=== PATIENT | male | born 1975 | race Caucasian/White ===

== ENCOUNTER 2022-12-10 08:08 | Inpatient (IN) ==
[2022-12-10 09:10] LABS: INR 1.2; PT Patient Result 13.5 SECS (10.1-12.1); Partial Thromboplastin Time 27.1 SECS (23.7-32.9)
[2022-12-10 09:18] LABS: Albumin 2.5 G/DL (3.4-5.0); Bilirubin,Total 2.8 MG/DL (0.20-1.00); Calcium 8.5 MG/DL (8.5-10.1); Osmolality,Calculated 287.7 MOS/KG (273-304); Potassium 3.8 MMOL/L (3.5-5.1); Total Protein 6.9 G/DL (6.4-8.2)
[2022-12-10 10:31] LABS: Basophils % 0.3 % (0.0-0.8); Eosinophils % 0.2 % (0.00-10.9); Hematocrit 36.7 VOL% (42.0-52.0); Hemoglobin 12.8 GM/DL (14.0-18.0); Immature Granulocytes % 0.7 %; Immature Granulocytes Absolute 0.08 #; Lymphocytes # 0.6 10*3/uL (1.4-4.0); Mean Corpuscular HGB Conc 34.9 GM/DL (32-36); Mean Corpuscular Volume 110.2 FL (87-102); Mean Platelet Volume 9.6 FL (9.6-12.0); Monocytes # 0.9 10*3/uL (0.11-0.8); Monocytes % 7.4 % (1.7-12.7); Neutrophils % 86.4 % (38.7-73.9); Platelet Count 106 T/CUMM (130-400); Red Blood Count 3.33 MC/CUMM (3.8-5.5); Red Cell Distribution Width 15.1 % (9.3-17.3); White Blood Count 11.6 T/CUMM (4-12)
[2022-12-10 10:42] LABS: Bacteria,Urine Occasional /HPF (Few); Mucus,Urine Occasional /LPF (Occasional); Squamous Epithelial Cell,Urine Occasional /HPF (0-10)
[2022-12-10 10:43] LABS: Urine Color Yellow (Yellow)
[2022-12-10 10:44] LABS: Bilirubin,Urine Negative (Negative); Blood, Urine Negative (Negative); Glucose,Urine (UA) Negative (Negative); Ketones,Urine Negative (Negative); Nitrite,Urine Negative (Negative); Protein,Urine 30 mg/dL (Negative); Urine Appearance Slightly Cloudy (Clear); Urine Specific Gravity 1.015 (1.001-1.035); Urine pH 5.5 (4.5-8.0)
[2022-12-10 11:25] LABS: Barbiturates Screen,Urine Negative (Negative); Benzodiazepines Screen,Urine Negative (Negative); Cannabinoid Screen,Urine Negative (Negative); Opiate Screen,Urine Negative (Negative); Phencyclidine Screen,Urine Negative (Negative)
[2022-12-10] MEDS ORDERED: hydrALAZINE 20 MG/1 ML VIAL IV PRN (14:21)
[2022-12-10] MEDS ORDERED: ONDANSETRON 4 MG/2 ML VIAL IV PRN (14:21)
[2022-12-10] MEDS ORDERED: guaiFENesin/DM ER 600-30 MG TABLET PO PRN (14:21)
[2022-12-10 14:43] LABS: Arterial Base Excess iSTAT -3 MMOL/L (-2.5-2.5); Arterial Bicarbonate iSTAT 20.9 MMOL/L (20-26); Arterial O2 Saturation iSTAT 92 % (95-100); Arterial PCO2 iSTAT 33 MM HG (35-48); Arterial PO2 iSTAT 63 MM HG (80-95); Arterial Total CO2 iSTAT 22 MMO/L (23-27); Arterial pH iSTAT 7.409 (7.35-7.45)
[2022-12-10] MEDS ORDERED: ENOXAPARIN 40 MG/0.4 ML SYRINGE SUBCUT SCH (15:00)
[2022-12-10] MEDS ORDERED: VANCOMYCIN INJ 1,500 MG in SODIUM CHLORIDE 0.9% 500 ML IV ONE (15:00)
[2022-12-10] MEDS: SODIUM CHLORIDE 0.9% 1,000 ML IV SCH (15:34)
[2022-12-10] MEDS: CEFEPIME 1,000 MG in SODIUM CHLORIDE 0.9% 100 ML IV SCH ×2 (18:40→20:58)
[2022-12-10] MEDS: DOCUSATE SODIUM 100 MG CAPSULE PO SCH (20:57)
[2022-12-10] MEDS: MORPHINE 2 MG/1 ML SYRINGE IV PRN (20:58)
[2022-12-11] MEDS: CEFEPIME 1,000 MG in SODIUM CHLORIDE 0.9% 100 ML IV SCH ×4 (04:00→20:29)
[2022-12-11] MEDS: SODIUM CHLORIDE 0.9% 1,000 ML IV SCH ×3 (04:10→18:19)
[2022-12-11] MEDS: MORPHINE 2 MG/1 ML SYRINGE IV PRN ×3 (05:32→23:30)
[2022-12-11 05:43] LABS: Basophils % 0.2 % (0.0-0.8); Hematocrit 34.4 VOL% (42.0-52.0); Hemoglobin 12.1 GM/DL (14.0-18.0); Immature Granulocytes Absolute 0.41 #; Lymphocytes # 0.6 10*3/uL (1.4-4.0); Mean Corpuscular HGB Conc 35.2 GM/DL (32-36); Mean Corpuscular Volume 112.8 FL (87-102); Mean Platelet Volume 10.1 FL (9.6-12.0); Monocytes # 0.7 10*3/uL (0.11-0.8); Monocytes % 6.3 % (1.7-12.7); Neutrophils % 83.5 % (38.7-73.9); Platelet Count 76 T/CUMM (130-400); Red Blood Count 3.05 MC/CUMM (3.8-5.5); Red Cell Distribution Width 15.6 % (9.3-17.3); White Blood Count 10.2 T/CUMM (4-12)
[2022-12-11 05:57] LABS: INR 1.5; PT Patient Result 15.8 SECS (10.1-12.1)
[2022-12-11 06:00] LABS: Folate 5.3 NG/ML (5.38-24.0)
[2022-12-11 06:06] LABS: Calcium 8.4 MG/DL (8.5-10.1); Osmolality,Calculated 285.1 MOS/KG (273-304); Potassium 3.6 MMOL/L (3.5-5.1); Risk Ratio 3.43; Thyroid Stimulating Hormone 0.628 uIU/ml (0.358-3.74); VLDL Cholesterol 23.2 MG/DL
[2022-12-11 08:04] LABS: Anisocytosis 1+; Platelet Estimate Decreased
[2022-12-11 08:05] LABS: Macrocytosis 1+
[2022-12-11] MEDS: PANTOPRAZOLE 40 MG TABLET PO SCH (10:52)
[2022-12-11] MEDS: DOCUSATE SODIUM 100 MG CAPSULE PO SCH ×2 (10:52→20:29)
[2022-12-11] MEDS: VANCOMYCIN INJ 1,500 MG in SODIUM CHLORIDE 0.9% 500 ML IV SCH (11:34)
[2022-12-11] MEDS: ACETAMINOPHEN 325 MG TABLET PO PRN (17:10)
[2022-12-11] MEDS: ENOXAPARIN 40 MG/0.4 ML SYRINGE SUBCUT SCH (20:29)
[2022-12-12] MEDS: CEFEPIME 1,000 MG in SODIUM CHLORIDE 0.9% 100 ML IV SCH ×4 (02:40→21:02)
[2022-12-12] MEDS: SODIUM CHLORIDE 0.9% 1,000 ML IV SCH ×2 (03:31→14:11)
[2022-12-12] MEDS: VANCOMYCIN INJ 1,500 MG in SODIUM CHLORIDE 0.9% 500 ML IV SCH ×2 (03:32→14:56)
[2022-12-12] MEDS ORDERED: FOLIC ACID INJ 1 MG in SYRINGE 1 EACH IV SCH (09:00)
[2022-12-12] MEDS: PANTOPRAZOLE 40 MG TABLET PO SCH (09:14)
[2022-12-12] MEDS: DOCUSATE SODIUM 100 MG CAPSULE PO SCH ×2 (09:14→21:02)
[2022-12-12] MEDS: ACETAMINOPHEN 325 MG TABLET PO PRN ×2 (12:22→18:22)
[2022-12-12] MEDS: ENOXAPARIN 40 MG/0.4 ML SYRINGE SUBCUT SCH (21:02)
[2022-12-12] MEDS: MORPHINE 2 MG/1 ML SYRINGE IV PRN (23:25)
[2022-12-13] MEDS: SODIUM CHLORIDE 0.9% 1,000 ML IV SCH ×3 (03:28→14:17)
[2022-12-13] MEDS: CEFEPIME 1,000 MG in SODIUM CHLORIDE 0.9% 100 ML IV SCH ×4 (03:29→21:03)
[2022-12-13] MEDS: VANCOMYCIN INJ 1,500 MG in SODIUM CHLORIDE 0.9% 500 ML IV SCH (04:00)
[2022-12-13 05:45] LABS: Basophils # 0.1 10*3/uL (0.0-0.2); Basophils % 0.8 % (0.0-0.8); Eosinophils # 0.2 10*3/uL (0.0-0.87); Eosinophils % 3.2 % (0.00-10.9); Hematocrit 30.4 VOL% (42.0-52.0); Hemoglobin 10.8 GM/DL (14.0-18.0); Immature Granulocytes Absolute 0.06 #; Lymphocytes # 1.1 10*3/uL (1.4-4.0); Lymphocytes % 17.8 % (21.2-54.2); Mean Corpuscular HGB Conc 35.5 GM/DL (32-36); Mean Corpuscular Volume 111.4 FL (87-102); Mean Platelet Volume 10.2 FL (9.6-12.0); Monocytes # 0.8 10*3/uL (0.11-0.8); Monocytes % 12.2 % (1.7-12.7); Red Blood Count 2.73 MC/CUMM (3.8-5.5); White Blood Count 6.2 T/CUMM (4-12)
[2022-12-13 05:49] LABS: Platelet Count 82 T/CUMM (130-400)
[2022-12-13 06:01] LABS: Osmolality,Calculated 281.3 MOS/KG (273-304); Potassium 3.8 MMOL/L (3.5-5.1)
[2022-12-13 06:11] LABS: Platelet Estimate Decreased
[2022-12-13] MEDS: PANTOPRAZOLE 40 MG TABLET PO SCH (09:17)
[2022-12-13] MEDS: FOLIC ACID 1 MG TABLET PO SCH (09:17)
[2022-12-13] MEDS: DOCUSATE SODIUM 100 MG CAPSULE PO SCH ×2 (09:17→21:03)
[2022-12-13] MEDS: LACTULOSE 20 GM/30 ML UDCUP PO SCH ×3 (09:18→21:05)
[2022-12-13 09:20] LABS: Albumin 2.1 G/DL (3.4-5.0); Bilirubin,Direct 0.77 MG/DL (0.0-0.20); Bilirubin,Indirect 1.1 MG/DL (0.0-1.0); Bilirubin,Total 1.9 MG/DL (0.20-1.00); Total Protein 6.2 G/DL (6.4-8.2)
[2022-12-13] MEDS: ENOXAPARIN 40 MG/0.4 ML SYRINGE SUBCUT SCH (21:03)
[2022-12-14] MEDS: SODIUM CHLORIDE 0.9% 1,000 ML IV SCH ×4 (00:37→17:28)
[2022-12-14] MEDS: CEFEPIME 1,000 MG in SODIUM CHLORIDE 0.9% 100 ML IV SCH ×4 (03:16→23:20)
[2022-12-14 05:52] LABS: Basophils # 0.1 10*3/uL (0.0-0.2); Basophils % 0.8 % (0.0-0.8); Eosinophils # 0.2 10*3/uL (0.0-0.87); Hematocrit 32.1 VOL% (42.0-52.0); Hemoglobin 11.2 GM/DL (14.0-18.0); Immature Granulocytes % 2.7 %; Immature Granulocytes Absolute 0.16 #; Lymphocytes # 1.1 10*3/uL (1.4-4.0); Lymphocytes % 18.9 % (21.2-54.2); Mean Corpuscular HGB Conc 34.9 GM/DL (32-36); Mean Corpuscular Volume 111.8 FL (87-102); Mean Platelet Volume 10.2 FL (9.6-12.0); Monocytes # 0.8 10*3/uL (0.11-0.8); Neutrophils % 60.6 % (38.7-73.9); Platelet Count 94 T/CUMM (130-400); Red Blood Count 2.87 MC/CUMM (3.8-5.5); Red Cell Distribution Width 14.9 % (9.3-17.3); White Blood Count 5.9 T/CUMM (4-12)
[2022-12-14 06:12] LABS: Platelet Estimate Decreased
[2022-12-14 06:18] LABS: Calcium 7.4 MG/DL (8.5-10.1); Osmolality,Calculated 281.3 MOS/KG (273-304); Potassium 3.8 MMOL/L (3.5-5.1)
[2022-12-14 06:23] LABS: Albumin 2.1 G/DL (3.4-5.0); Bilirubin,Total 2.4 MG/DL (0.20-1.00); Calcium 7.6 MG/DL (8.5-10.1); Osmolality,Calculated 280.3 MOS/KG (273-304); Potassium 3.8 MMOL/L (3.5-5.1); Total Protein 6.2 G/DL (6.4-8.2)
[2022-12-14] MEDS: PANTOPRAZOLE 40 MG TABLET PO SCH (09:04)
[2022-12-14] MEDS: LACTULOSE 20 GM/30 ML UDCUP PO SCH ×3 (09:04→20:55)
[2022-12-14] MEDS: FOLIC ACID 1 MG TABLET PO SCH (09:05)
[2022-12-14] MEDS: DOCUSATE SODIUM 100 MG CAPSULE PO SCH ×2 (09:05→21:19)
[2022-12-14] MEDS: KETOROLAC 15 MG/1 ML VIAL IV SCH (12:18)
[2022-12-14] MEDS ORDERED: CLINDAMYCIN INJ 900 MG/50 ML PREMIX IV SCH (13:00)
[2022-12-14] MEDS: VANCOMYCIN INJ 1,500 MG in SODIUM CHLORIDE 0.9% 500 ML IV SCH (20:52)
[2022-12-14] MEDS: ENOXAPARIN 40 MG/0.4 ML SYRINGE SUBCUT SCH (20:53)
[2022-12-15] MEDS: KETOROLAC 15 MG/1 ML VIAL IV SCH (00:29)
[2022-12-15] MEDS: CEFEPIME 1,000 MG in SODIUM CHLORIDE 0.9% 100 ML IV SCH (04:30)
[2022-12-15] MEDS: SODIUM CHLORIDE 0.9% 1,000 ML IV SCH ×2 (04:30→10:48)
[2022-12-15 06:10] LABS: Basophils # 0.1 10*3/uL (0.0-0.2); Basophils % 0.8 % (0.0-0.8); Eosinophils # 0.4 10*3/uL (0.0-0.87); Eosinophils % 5.2 % (0.00-10.9); Hematocrit 33.3 VOL% (42.0-52.0); Hemoglobin 11.6 GM/DL (14.0-18.0); Immature Granulocytes Absolute 0.37 #; Lymphocytes # 1.1 10*3/uL (1.4-4.0); Mean Corpuscular HGB Conc 34.8 GM/DL (32-36); Mean Corpuscular Volume 113.7 FL (87-102); Mean Platelet Volume 9.8 FL (9.6-12.0); Monocytes # 0.7 10*3/uL (0.11-0.8); Monocytes % 9.9 % (1.7-12.7); Neutrophils % 64.1 % (38.7-73.9); Platelet Count 109 T/CUMM (130-400); Red Blood Count 2.93 MC/CUMM (3.8-5.5); Red Cell Distribution Width 15.2 % (9.3-17.3); White Blood Count 7.4 T/CUMM (4-12)
[2022-12-15 06:31] LABS: Calcium 8.2 MG/DL (8.5-10.1); Osmolality,Calculated 280.4 MOS/KG (273-304); Potassium 3.4 MMOL/L (3.5-5.1)
[2022-12-15 06:34] LABS: Albumin 2.2 G/DL (3.4-5.0); Bilirubin,Total 2.4 MG/DL (0.20-1.00); Calcium 8.4 MG/DL (8.5-10.1); Osmolality,Calculated 274.8 MOS/KG (273-304); Potassium 3.4 MMOL/L (3.5-5.1); Total Protein 6.7 G/DL (6.4-8.2)
[2022-12-15] MEDS: VANCOMYCIN INJ 1,500 MG in SODIUM CHLORIDE 0.9% 500 ML IV SCH (08:14)
[2022-12-15] MEDS: FOLIC ACID 1 MG TABLET PO SCH (08:17)
[2022-12-15] MEDS: LACTULOSE 20 GM/30 ML UDCUP PO SCH (08:17)
[2022-12-15] MEDS: PANTOPRAZOLE 40 MG TABLET PO SCH (08:17)
[2022-12-15] MEDS: DOCUSATE SODIUM 100 MG CAPSULE PO SCH (08:19)
[2022-12-15 11:40] VITALS: BP 120/55
[2022-12-15] MEDS ORDERED: CLINDAMYCIN 300 MG CAPSULE PO SCH (15:00)
[2022-12-15] MEDS ORDERED: CEFUROXIME 500 MG TABLET PO SCH (21:00)
== END 2022-12-15 11:44 | disposition home or self-care (01) | DRG 871 ==
LOC: EDUNIT# → EDBD → N.EDINP 08:08 → N.ED 08:08 → SUATTDRO 14:21 → OBSVTOIN 14:21 → N.2E 16:04
PROVIDERS: ADMIT Internal Medicine; ATTEND Emergency Medicine